=== PATIENT | male | born 1955 | race Caucasian/White ===

== ENCOUNTER 2017-08-18 00:54 | Emergency (ER) | payer BC ==
[~2017-08-18] VITALS: Ht 180.3 cm; Wt 88.6 kg
[~2017-08-18 00:54] MED LIST: CLOT1CRE TOP; DOXA1 PO
[2017-08-18] MEDS ORDERED: SODIUM CHLORIDE 0.9% FLUSH 10 ML FLUSH IVF PRN (01:00)
[2017-08-18 01:01] VITALS: BP 173/91; PULSE 60; RESP 18; O2SAT 99
[2017-08-18 01:24] LABS: AUTOMATED NEUTROPHIL # 3.4 TH/MM3 (1.8-7.7); BASOPHIL # 0.1 TH/MM3 (0-0.2); EOSINOPHIL # 0.2 TH/MM3 (0-0.4); EOSINOPHIL % 3.2 % (0.0-4.0); HEMATOCRIT 41.4 % (39.0-51.0); HEMOGLOBIN 14.4 GM/DL (13.0-17.0); LYMPH % 36.3 % (9.0-44.0); LYMPHOCYTE # 2.6 TH/MM3 (1.0-4.8); MEAN CELL VOLUME 89.6 FL (80.0-100.0); MEAN CORPUSCULAR HEMOGLOBIN 31.2 PG (27.0-34.0); MEAN CORPUSCULAR HGB CONC 34.8 % (32.0-36.0); MEAN PLATELET VOLUME 8.2 FL (7.0-11.0); MONOCYTE # 0.9 TH/MM3 (0-0.9); NEUT % 46.5 % (16.0-70.0); PLATELET COUNT 184 TH/MM3 (150-450); RED BLOOD COUNT 4.62 MIL/MM3 (4.50-5.90); WHITE BLOOD COUNT 7.2 TH/MM3 (4.0-11.0)
[2017-08-18 01:33] LABS: CHLORIDE 108 MEQ/L (98-107); SODIUM (NA) 141 MEQ/L (136-145)
[2017-08-18 01:35] LABS: CALCIUM 8.7 MG/DL (8.5-10.1)
[2017-08-18 01:36] LABS: BICARBONATE 21.4 MEQ/L (21.0-32.0); BLOOD UREA NITROGEN 11 MG/DL (7-18); GLUCOSE,RANDOM 98 MG/DL (74-106)
[2017-08-18 01:39] LABS: CREATININE 0.83 MG/DL (0.60-1.30); GLOMERULAR FILTRATION RATE 93 ML/MIN (>89)
[2017-08-18 01:44] LABS: TROPONIN I LESS THAN 0.02 NG/ML (0.02-0.05)
--- NOTE | 2017-08-18 01:51 | RADRPT ---
EXAM DATE: 08/18/2017 1:36 AM EDT AGE/SEX: 62 years / Male INDICATIONS: Left sided chest and rib pain. CLINICAL DATA: This is the patient's initial encounter. Patient reports that signs and symptoms have been present for 1 day and indicates a pain score of 7/10. MEDICAL/SURGICAL HISTORY: None. None. COMPARISON: No prior exams available for comparison. FINDINGS: There are fractures of the left sixth seventh and ninth ribs anterolaterally. No destructive lesions or areas of periosteal thickening are seen. Expiratory view of the chest is negative for pneumothor ax. The mediastinal structures are midline. CONCLUSION: Several left-sided rib fractures. No pneumothorax Electronically signed by: Lazaro Nelson MD 08/18/2017 1:49 AM EDT
[2017-08-18 01:58] VITALS: BP 140/85; PULSE 54; RESP 16; O2SAT 96
[2017-08-18] MEDS ORDERED: ASPI-183 PO (02:01)
[2017-08-18] MEDS ORDERED: NAPR500 PO (02:01)
[2017-08-18] MEDS ORDERED: ZANT150T2 PO (02:02)
[2017-08-18] MEDS ORDERED: ASPI1TAB93 PO (02:03)
[2017-08-18 03:53] LABS: ALBUMIN 4.2 GM/DL (3.4-5.0)
[2017-08-18 03:56] LABS: DIRECT BILIRUBIN ADULT 0.1 MG/DL (0.0-0.2)
[2017-08-18 03:58] LABS: INDIRECT BILIRUBIN 0.2 MG/DL (0.0-0.8); TOTAL BILIRUBIN ADULT 0.3 MG/DL (0.2-1.0)
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
--- NOTE | 2017-08-18 14:08 | EKG ---
Date Performed: 08/18/2017 Time Performed: 00:55:07 PTAGE: 62 years EKG: Sinus rhythm NORMAL ECG INTERPRETATION BASED ON A DEFAULT AGE OF 40 YEARS PREVIOUS TRACING : 08/28/2014 08.17 Since the previous tracing, no significant change not ed DOCTOR: Favian Hewitt Interpretating Date/Time 08/18/2017 14:07:01
== END 2017-08-18 04:09 | disposition home or self-care (01) ==
LOC: PHED 00:54
DX: S22.42XA Multiple fractures of ribs, left side, initial encounter for closed fracture (principal); I10 Essential (primary) hypertension; F10.10 Alcohol abuse, uncomplicated; R07.81 Pleurodynia; X58.XXXA Exposure to other specified factors, initial encounter
CPT/HCPCS: 71101; 80048; 80076; 82550; 82552; 83690; 84484; 85025; 85610; 85730; 93005; 99284